=== PATIENT | male | born 1950 | race African-American/Black ===

== ENCOUNTER 2018-01-15 08:44 | Inpatient (IN) | payer OTHER ==
[~2018-01-15] VITALS: Ht 185.4 cm; Wt 98.1 kg
[2018-01-15 10:19] LABS: Basophils # (auto) 0 uL; Eosinophils # (auto) 0.1 uL; Eosinophils % (auto) 1.1 % (0.0-7.0); Hemoglobin 13.4 g/dL (13.5-17.5); Lymphocytes # (auto) 1.1 uL; Lymphocytes % (auto) 23.5 % (10.0-50.0); Monocytes # (auto) 0.5 uL; Neutrophils # (auto) 3.1 uL; Neutrophils % (auto) 64.5 % (37.0-80.0); Nucleated Red Blood Cells % 0.1 %; Platelet Count (auto) 270 10^3/uL (140-450); Red Cell Distribution Width 14.6 % (11.8-14.3); White Blood Cell 4.7 10^3/uL (4.4-10.8)
[2018-01-15 10:21] LABS: Basophils % (auto) 0.4 % (0.0-2.0); Mean Corpuscular Hemoglobin 26.5 pg (28.0-32.0); Mean Corpuscular Hgb Conc. 32.7 g/dL (32.0-36.0); Mean Corpuscular Volume 81.1 fL (80.0-100.0); Monocytes % (auto) 10.5 % (0.0-12.0); Red Blood Cells 5.05 10^6/uL (4.5-5.90)
[2018-01-15 10:45] LABS: Alanine Aminotransferase 24 U/L (16-61); Albumin 3.6 g/dL (3.4-5.0); Alkaline Phosphatase 97 U/L (45-117); Anion Gap 10 (5-15); Aspartate Aminotransferase 18 U/L (15-37); BUN/Creatinine Ratio 15.6; Bilirubin, Total 0.7 mg/dL (0.2-1.0); Blood Urea Nitrogen 14 mg/dL (7-18); Calcium 8.9 mg/dL (8.5-10.1); Carbon Dioxide 24 mmol/L (21-32); Chloride 101 mmol/L (98-107); GFR African American 108 mL/min; GFR Non-African American 89 mL/min; Glucose 139 mg/dL (74-106); Magnesium 2.5 mg/dL (1.6-2.6); Sodium 135 mmol/L (136-145); Total Protein 8.6 g/dL (6.4-8.2)
[2018-01-15] MEDS ORDERED: cloNIDine HCL 0.1 MG TAB ONE (16:59)
[2018-01-15 17:07] LABS: Urine Bacteria NONE SEEN /hpf (None Seen); Urine Blood Negative /uL (Negative); Urine Specific Gravity 1.009 (1.001-1.035); Urine WBC 4 /hpf (0 - 3)
[2018-01-15] MEDS ORDERED: cloNIDine HCL 0.1 MG TAB PO ONE (17:15)
[2018-01-15] MEDS ORDERED: SODIUM CHLORIDE 0.9% 1,000 ML IV ONE (17:58)
[2018-01-15] MEDS ORDERED: LABETALOL HCL 5 MG/ML ML 20ML VIAL IV ONE (18:00)
[2018-01-15] MEDS ORDERED: ZOLPIDEM TARTRATE 5 MG TAB PO ONE (19:45)
[2018-01-15] MEDS ORDERED: cloNIDine HCL 0.1 MG TAB PO PRN (19:45)
[2018-01-15 22:40] VITALS: BP 124/79
[2018-01-16 04:44] VITALS: BP 147/91
[2018-01-16] MEDS ORDERED: INFLUENZA QUAD 2017-2018 0.5 ML SYRG IM ONE (05:45)
[2018-01-16] MEDS ORDERED: PNEUMOCOCCAL VACC POLYS 25 MCG/0.5 ML VIAL IM ONE (05:45)
[2018-01-16 08:00] VITALS: BP 143/88
[2018-01-16 08:30] VITALS: BP 129/90
[2018-01-16] MEDS: FLUoxetine HCL 20 MG CAP PO SCH (09:53)
[2018-01-16] MEDS: METOPROLOL SUCCINATE XL 50 MG TAB PO SCH ×2 (09:54→10:00)
[2018-01-16] MEDS: POTASSIUM CHL 10 Meq TABLET PO SCH (09:54)
[2018-01-16] MEDS: OXYBUTYNIN CHL 5 MG TAB PO SCH (09:54)
[2018-01-16] MEDS: PANTOPRAZOLE 40 MG TAB PO SCH (09:54)
[2018-01-16] MEDS: NIFEdipine ER 30 MG TAB PO SCH (09:55)
[2018-01-16] MEDS: FUROSEMIDE 20 MG TAB PO SCH ×2 (09:55→10:00)
[2018-01-16] MEDS ORDERED: LISINOPRIL 20 MG TAB PO SCH (10:00)
[2018-01-16] MEDS ORDERED: ASPirin 81 mg TAB PO SCH (10:00)
[2018-01-16] MEDS ORDERED: LOSARTAN POTASSIUM 50 MG TAB PO SCH (10:00)
[2018-01-16 11:55] VITALS: BP 132/87
[2018-01-16 16:53] VITALS: BP 131/86
[2018-01-16] MEDS: metFORMIN HYDROCHLORIDE 850 MG TAB PO SCH (17:24)
[2018-01-16 22:04] VITALS: BP 128/90
[2018-01-16] MEDS: ASPIRIN-DIPYRIDAMOLE (25/200MG) CAPSULE PO SCH (22:26)
[2018-01-16] MEDS: LOSARTAN POTASSIUM 50 MG TAB PO SCH (22:27)
[2018-01-16] MEDS: TERAZOSIN HCL 1 MG CAP PO SCH (22:28)
[2018-01-16] MEDS: ATORVASTATIN 20 MG TAB PO SCH (22:28)
[2018-01-17 04:41] VITALS: BP 126/84
[2018-01-17 08:00] VITALS: BP 152/101
[2018-01-17] MEDS: metFORMIN HYDROCHLORIDE 850 MG TAB PO SCH (08:35)
[2018-01-17] MEDS: LOSARTAN POTASSIUM 50 MG TAB PO SCH ×2 (08:35→22:11)
[2018-01-17] MEDS: TERAZOSIN HCL 1 MG CAP PO SCH (08:36)
[2018-01-17] MEDS: NIFEdipine ER 30 MG TAB PO SCH (08:36)
[2018-01-17] MEDS: FLUoxetine HCL 20 MG CAP PO SCH (08:37)
[2018-01-17] MEDS: POTASSIUM CHL 10 Meq TABLET PO SCH (08:37)
[2018-01-17] MEDS: FUROSEMIDE 20 MG TAB PO SCH (08:37)
[2018-01-17] MEDS: PANTOPRAZOLE 40 MG TAB PO SCH (08:37)
[2018-01-17] MEDS: METOPROLOL SUCCINATE XL 50 MG TAB PO SCH (08:38)
[2018-01-17] MEDS: OXYBUTYNIN CHL 5 MG TAB PO SCH (08:38)
[2018-01-17 09:00] VITALS: BP 152/101
[2018-01-17] MEDS: ASPIRIN-DIPYRIDAMOLE (25/200MG) CAPSULE PO SCH ×2 (10:52→23:27)
[2018-01-17 12:56] LABS: Cholesterol 139 mg/dL (< 200); HDL Cholesterol 59 mg/dL (40-59); LDL Cholesterol 75 mg/dL (< 100); Triglycerides 51 mg/dL (< 150)
[2018-01-17 13:00] VITALS: BP 128/73
[2018-01-17 17:00] VITALS: BP 124/78
[2018-01-17] MEDS: hydrALAZINE HCL 25 MG TAB PO SCH (22:09)
[2018-01-17] MEDS: ATORVASTATIN 20 MG TAB PO SCH (22:10)
[2018-01-17 22:20] VITALS: BP 134/75
[2018-01-18 05:04] VITALS: BP 154/95
[2018-01-18 08:00] VITALS: BP 150/99
[2018-01-18] MEDS: PANTOPRAZOLE 40 MG TAB PO SCH (10:01)
[2018-01-18] MEDS: ASPIRIN-DIPYRIDAMOLE (25/200MG) CAPSULE PO SCH ×2 (10:01→21:50)
[2018-01-18] MEDS: TERAZOSIN HCL 1 MG CAP PO SCH (10:02)
[2018-01-18] MEDS: FUROSEMIDE 20 MG TAB PO SCH (10:02)
[2018-01-18] MEDS: POTASSIUM CHL 10 Meq TABLET PO SCH (10:02)
[2018-01-18] MEDS: OXYBUTYNIN CHL 5 MG TAB PO SCH (10:02)
[2018-01-18] MEDS: hydrALAZINE HCL 25 MG TAB PO SCH ×4 (10:03→21:51)
[2018-01-18] MEDS: FLUoxetine HCL 20 MG CAP PO SCH (10:03)
[2018-01-18] MEDS: LOSARTAN POTASSIUM 50 MG TAB PO SCH ×2 (10:03→21:52)
[2018-01-18] MEDS: NIFEdipine ER 30 MG TAB PO SCH (10:04)
[2018-01-18] MEDS: METOPROLOL SUCCINATE XL 50 MG TAB PO SCH (10:04)
[2018-01-18] MEDS: metFORMIN HYDROCHLORIDE 850 MG TAB PO SCH (10:04)
[2018-01-18 12:00] VITALS: BP 124/98
[2018-01-18 16:00] VITALS: BP 129/76
[2018-01-18 21:50] VITALS: BP 125/89
[2018-01-18] MEDS: ATORVASTATIN 20 MG TAB PO SCH (21:52)
[2018-01-19 04:37] VITALS: BP 141/95
[2018-01-19] MEDS: hydrALAZINE HCL 25 MG TAB PO SCH ×4 (05:44→21:50)
[2018-01-19 07:33] VITALS: BP 132/78
[2018-01-19 08:00] VITALS: BP 132/78
[2018-01-19] MEDS: ASPIRIN-DIPYRIDAMOLE (25/200MG) CAPSULE PO SCH ×2 (10:33→21:50)
[2018-01-19] MEDS: NIFEdipine ER 30 MG TAB PO SCH (10:33)
[2018-01-19] MEDS: metFORMIN HYDROCHLORIDE 850 MG TAB PO SCH (10:33)
[2018-01-19] MEDS: POTASSIUM CHL 10 Meq TABLET PO SCH (10:34)
[2018-01-19] MEDS: OXYBUTYNIN CHL 5 MG TAB PO SCH (10:34)
[2018-01-19] MEDS: TERAZOSIN HCL 1 MG CAP PO SCH (10:34)
[2018-01-19] MEDS: FLUoxetine HCL 20 MG CAP PO SCH (10:34)
[2018-01-19] MEDS: LOSARTAN POTASSIUM 50 MG TAB PO SCH ×2 (10:35→21:50)
[2018-01-19] MEDS: FUROSEMIDE 20 MG TAB PO SCH (10:35)
[2018-01-19] MEDS: METOPROLOL SUCCINATE XL 50 MG TAB PO SCH (10:36)
[2018-01-19] MEDS: PANTOPRAZOLE 40 MG TAB PO SCH (10:36)
[2018-01-19 11:52] VITALS: BP 131/79
[2018-01-19 17:20] VITALS: BP 120/73
[2018-01-19] MEDS: ATORVASTATIN 20 MG TAB PO SCH (21:50)
[2018-01-19 22:00] VITALS: BP 121/68
[2018-01-20] MEDS ORDERED: ACETAMINOPHEN 325 MG TAB PO PRN (02:30)
[2018-01-20 04:36] VITALS: BP 133/73
[2018-01-20] MEDS: hydrALAZINE HCL 25 MG TAB PO SCH ×2 (05:49→12:34)
[2018-01-20 06:50] LABS: Basophils # (auto) 0 uL; Basophils % (auto) 0.3 % (0.0-2.0); Eosinophils # (auto) 0.1 uL; Eosinophils % (auto) 2.1 % (0.0-7.0); Hematocrit 40.9 % (41.0-53.0); Hemoglobin 13.6 g/dL (13.5-17.5); Lymphocytes # (auto) 1.2 uL; Lymphocytes % (auto) 23.5 % (10.0-50.0); Mean Corpuscular Hgb Conc. 33.4 g/dL (32.0-36.0); Mean Corpuscular Volume 80.8 fL (80.0-100.0); Monocytes # (auto) 0.6 uL; Monocytes % (auto) 11.5 % (0.0-12.0); Neutrophils # (auto) 3.2 uL; Neutrophils % (auto) 62.6 % (37.0-80.0); Nucleated Red Blood Cells % 0.1 %; Platelet Count (auto) 271 10^3/uL (140-450); Red Blood Cells 5.06 10^6/uL (4.5-5.90); Red Cell Distribution Width 14.4 % (11.8-14.3); White Blood Cell 5.2 10^3/uL (4.4-10.8)
[2018-01-20 07:03] LABS: Potassium 3.9 mmol/L (3.5-5.1)
[2018-01-20 07:07] LABS: BUN/Creatinine Ratio 39.1; Calcium 8.9 mg/dL (8.5-10.1)
[2018-01-20 09:00] VITALS: BP 132/86
[2018-01-20] MEDS: metFORMIN HYDROCHLORIDE 850 MG TAB PO SCH (09:32)
[2018-01-20] MEDS: PANTOPRAZOLE 40 MG TAB PO SCH (09:34)
[2018-01-20] MEDS: FLUoxetine HCL 20 MG CAP PO SCH (09:35)
[2018-01-20] MEDS: LOSARTAN POTASSIUM 50 MG TAB PO SCH (09:36)
[2018-01-20] MEDS: OXYBUTYNIN CHL 5 MG TAB PO SCH (09:37)
[2018-01-20] MEDS: TERAZOSIN HCL 1 MG CAP PO SCH (09:37)
[2018-01-20] MEDS: NIFEdipine ER 30 MG TAB PO SCH (09:38)
[2018-01-20] MEDS: FUROSEMIDE 20 MG TAB PO SCH (09:39)
[2018-01-20] MEDS: POTASSIUM CHL 10 Meq TABLET PO SCH (09:40)
[2018-01-20] MEDS: METOPROLOL SUCCINATE XL 50 MG TAB PO SCH (09:40)
[2018-01-20] MEDS: ASPIRIN-DIPYRIDAMOLE (25/200MG) CAPSULE PO SCH (10:01)
[2018-01-20] MEDS ORDERED: PNEUMOCOCCAL VACC POLYS 25 MCG/0.5 ML VIAL IM ONE (11:00)
[2018-01-20 12:55] VITALS: BP 123/56
== END 2018-01-20 16:39 | DRG 65 ==
LOC: ER 08:44 → EDBD 08:44 → EEVIPCON 08:45 → EAST 08:45
PROVIDERS: ADMIT Internal Medicine; ATTEND Internal Medicine
DX: I63.9 Cerebral infarction, unspecified (principal); N39.0 Urinary tract infection, site not specified; G81.94 Hemiplegia, unspecified affecting left nondominant side; G93.89 Other specified disorders of brain; I11.0 Hypertensive heart disease with heart failure; W06.XXXA Fall from bed, initial encounter; J44.9 Chronic obstructive pulmonary disease, unspecified; E11.9 Type 2 diabetes mellitus without complications; F41.9 Anxiety disorder, unspecified; H53.9 Unspecified visual disturbance; B19.20 Unspecified viral hepatitis C without hepatic coma; Z87.891 Personal history of nicotine dependence; Z79.82 Long term (current) use of aspirin; Z79.899 Other long term (current) drug therapy; Z80.0 Family history of malignant neoplasm of digestive organs; Z80.6 Family history of leukemia; Z80.8 Family history of malignant neoplasm of other organs or systems; Z23 Encounter for immunization; Y93.89 Activity, other specified; Y92.89 Other specified places as the place of occurrence of the external cause; Y99.8 Other external cause status
CPT/HCPCS: 36415; 70450; 70551; 71045; 80048; 80053; 80061; 81001; 83735; 84443; 84484; 85025; 92610; 93005; 93306; 93886; 95819; 96361; 96374; 97163